=== PATIENT | female | born 1940 | race Hispanic/Latino ===

== ENCOUNTER 2018-12-03 08:17 | Day surgery (SDC) | payer MEDICARE, OTHER ==
[2018-12-03 08:45] VITALS: BMI 24.5
[2018-12-03] MEDS ORDERED: Tropicamide 1% Opht 150 DROP/15 ML OS SCH (09:00)
[2018-12-03] MEDS ORDERED: Flurbiprofen 0.03% Opht SOLN OS ONE ×2 (09:00→09:15)
[2018-12-03] MEDS ORDERED: Lactated Ringer's 1,000 ML IV ONE ×3 (09:00)
[2018-12-03] MEDS ORDERED: Phenylephrine 2.5% Opht Soln OS ONE ×2 (09:00→09:15)
[2018-12-03 09:02] VITALS: O2SAT 98
[2018-12-03] MEDS ORDERED: Tropicamide 1% Opht 150 DROP/15 ML OS ONE (09:15)
[2018-12-03] MEDS ORDERED: EPINEPHrine 1 mg/ml (1:1000) Inj ONE (09:22)
[2018-12-03] MEDS ORDERED: STERILE IRRIGATING SOLUTION 45 ML IR ONE (09:23)
[2018-12-03] MEDS ORDERED: Tetracaine 0.5% Ophth 2 ML BOTTLE ONE (09:23)
[2018-12-03] MEDS ORDERED: Pilocarpine 1% Opht Soln ONE (09:23)
[2018-12-03] MEDS ORDERED: CA CL/K CL/NA CL 500 ML IR ONE (09:23)
[2018-12-03] MEDS ORDERED: Povidone Iodine 5% Opht SOLUTION ONE (09:24)
[2018-12-03] MEDS ORDERED: Midazolam 2 MG/2 ML VIAL ONE (10:34)
[2018-12-03] MEDS ORDERED: Povidone Iodine 5% Opht SOLUTION OS ONE (10:47)
[2018-12-03] MEDS: Lidocaine 1% 20 MG/2 ML PF AMP ONE ×2 (10:48→11:00)
[2018-12-03] MEDS: Chondroitin/Hyaluronate Opth Syringe KIT (0.55 ml-0.5 ml) IO ONE ×2 (10:48→11:02)
[2018-12-03] MEDS: Maxitrol Opht Susp ONE ×3 (10:51→11:10)
[2018-12-03] MEDS: Carbachol 0.01% IO ONE ×2 (11:01→11:08)
[2018-12-03] MEDS ORDERED: BSS 15 ML SOL IR ONE (11:02)
[2018-12-03 12:37] VITALS: RESP 18
[2018-12-03 14:09] VITALS: BP 160/78; PULSE 68; TEMP 97.6
--- NOTE | 2018-12-04 12:43 | OP ---
PROCEDURE DATE: 12/03/2018 SURGEON: SHIMA GEORGE MD ANESTHESIOLOGIST: ILYA SCHMITT MD ANESTHESIA: LOCAL / IV SEDATION PREOPERATIVE DIAGNOSIS: CATARACT LEFT EYE. POSTOPERATIVE DIAGNOSIS: CATARACT LEFT EYE. OPERATION: CLEAR CORNEAL PHACOEMULSIFICATION WITH LENS IMPLANT LEFT EYE. PREPARATION AND PROCEDURE: After the patient was prepped and draped in the usual manner for sterile ophthalmic surgery, local IV sedation was administered; eye seals were applied to the upper and lower lid margins and an adult wire lid speculum was placed within the lids. Under microsurgical control, a two-step clear corneal incision was made into the anterior chamber. The initial incision was perpendicular to the corneal plane. The second incision with the keratome was placed at a 45-degree angle to the first incision. One cc of one percent Xylocaine MPF was instilled into the anterior chamber to achieve proper intraocular anesthesia. At this time, the Viscoelastic was injected into the anterior chamber for protection of the endothelium and for maintenance of the chamber depth. A 360-degree continuous curvilinear capsulorrhexis was performed using a pre-bent 25-gauge needle. Hydrodissection and hydrodelineation were performed using a Zamarripa cannula and balanced salt solution. Utilizing the tip of the Zamarripa cannula, the nucleus was rotated freely within the capsular bag. A standard one-handed phacoemulsification was utilized at this time for sculpting and rotating of the nucleus. The nucleus was fragmented in its entirety and aspirated without any consequence. A standard I&A was carried out for the residual cortical material. No residual material was noted within the capsular bag. The posterior capsule was noted to be clear. Additional Viscoelastic was injected into the capsular bag in preparation for lens implantation. After this has been satisfactorily achieved the intraocular lens injected through the corneal incision into the capsular bag. The intraocular lens was manipulated until it was properly oriented and the Viscoelastic was evacuated from the capsular bag and anterior chamber. The anterior chamber was reformed with balanced salt solution. The corneal incision was irrigated with BSS. The intraocular pressure was found to be within normal limits. This terminated the procedure. The speculum and lid drapes were removed. TobraDex ophthalmic suspension and Pilocarpine 1% drops one drop was applied to the eye. POSTOPERATIVE CONDITION: The patient was brought to the Post anesthesia Recovery area with stable vital signs. DSHIMA CLAIRE MD
== END 2018-12-03 13:30 | disposition home or self-care (01) ==
LOC: H.OPSURG 08:17
PROVIDERS: ATTEND Ophthalmology
DX: H25.012 Cortical age-related cataract, left eye (principal); E78.5 Hyperlipidemia, unspecified; I10 Essential (primary) hypertension
CPT/HCPCS: 66984; J0171; J2250; J3010; J7120

== ENCOUNTER → 2018-12-17 | Day surgery (SDC) | payer MEDICARE, OTHER ==
[~2018-12-17] MED LIST: BSS 15 ML SOL IR ONE; CA CL/K CL/NA CL 500 ML IR ONE; Carbachol 0.01% IO ONE; Chondroitin/Hyaluronate Opth Syringe KIT (0.55 ml-0.5 ml) IO ONE; EPINEPHrine 1 mg/ml (1:1000) Inj IV ONE; EPINEPHrine 1 mg/ml (1:1000) Inj ONE; Flurbiprofen 0.03% Opht SOLN OD ONE; Flurbiprofen 0.03% Opht SOLN OD SCH; Lactated Ringer's 1,000 ML IV ONE; Maxitrol Opht Susp OD ONE; Maxitrol Opht Susp ONE; Midazolam 2 MG/2 ML VIAL ONE; Phenylephrine 2.5% Opht Soln OD ONE; Phenylephrine 2.5% Opht Soln OD SCH; Pilocarpine 2% Opht Soln ONE; Povidone Iodine 5% Opht SOLUTION OD ONE; Povidone Iodine 5% Opht SOLUTION ONE; STERILE IRRIGATING SOLUTION 45 ML IR ONE; Tetracaine 0.5% Ophth 2 ML BOTTLE OD ONE; Tetracaine 0.5% Ophth 2 ML BOTTLE ONE; Tropicamide 1% Opht 150 DROP/15 ML OD ONE; Tropicamide 1% Opht 150 DROP/15 ML OD SCH
[2018-12-17 08:57] VITALS: BMI 24.5
[2018-12-17] MEDS: Pilocarpine 1% Opht Soln ONE ×2 (10:25→10:37)
[2018-12-17] MEDS: Lidocaine 1% 20 MG/2 ML PF AMP ONE ×2 (10:29→10:37)
[2018-12-17 11:58] VITALS: O2SAT 98
[2018-12-17 11:59] VITALS: RESP 18; TEMP 98.1
[2018-12-17 12:33] VITALS: BP 162/75; PULSE 73
--- NOTE | 2018-12-18 07:48 | OP ---
PROCEDURE DATE: 12/17/2018 SURGEON: SHIMA GEORGE MD ANESTHESIOLOGIST: ILYA SCHMITT MD ANESTHESIA: LOCAL / IV SEDATION PREOPERATIVE DIAGNOSIS: CATARACT RIGHT EYE. POSTOPERATIVE DIAGNOSIS: CATARACT RIGHT EYE. OPERATION: CLEAR CORNEAL PHACOEMULSIFICATION WITH LENS IMPLANT RIGHT EYE. PREPARATION AND PROCEDURE: After the patient was prepped and draped in the usual manner for sterile ophthalmic surgery, local IV sedation was administered; eye seals were applied to the upper and lower lid margins and an adult wire lid speculum was placed within the lids. Under microsurgical control, a two-step clear corneal incision was made into the anterior chamber. The initial incision was perpendicular to the corneal plane. The second incision with the keratome was placed at a 45-degree angle to the first incision. One cc of one percent Xylocaine MPF was instilled into the anterior chamber to achieve proper intraocular anesthesia. At this time, the Viscoelastic was injected into the anterior chamber for protection of the endothelium and for maintenance of the chamber depth. A 360-degree continuous curvilinear capsulorrhexis was performed using a pre-bent 25-gauge needle. Hydrodissection and hydrodelineation were performed using a Zamarripa cannula and balanced salt solution. Utilizing the tip of the Zamarripa cannula, the nucleus was rotated freely within the capsular bag. A standard one-handed phacoemulsification was utilized at this time for sculpting and rotating of the nucleus. The nucleus was fragmented in its entirety and aspirated without any consequence. A standard I&A was carried out for the residual cortical material. No residual material was noted within the capsular bag. The posterior capsule was noted to be clear. Additional Viscoelastic was injected into the capsular bag in preparation for lens implantation. After this has been satisfactorily achieved the intraocular lens injected through the corneal incision into the capsular bag. The intraocular lens was manipulated until it was properly oriented and the Viscoelastic was evacuated from the capsular bag and anterior chamber. The anterior chamber was reformed with balanced salt solution. The corneal incision was irrigated with BSS. The intraocular pressure was found to be within normal limits. This terminated the procedure. The speculum and lid drapes were removed. TobraDex ophthalmic suspension and Pilocarpine 1% drops one drop was applied to the eye. POSTOPERATIVE CONDITION: The patient was brought to the Post anesthesia Recovery area with stable vital signs. DSHIMA CLAIRE MD
== END | disposition home or self-care (01) ==
LOC: H.OPSURG 08:35
PROVIDERS: ATTEND Ophthalmology
DX: H25.011 Cortical age-related cataract, right eye (principal); M19.90 Unspecified osteoarthritis, unspecified site; E78.5 Hyperlipidemia, unspecified; I10 Essential (primary) hypertension; M81.0 Age-related osteoporosis without current pathological fracture
CPT/HCPCS: 66984; J0171; J2250; J3010; J7120; V2632